=== PATIENT | female | born 1955 | race Caucasian/White ===

== ENCOUNTER 2020-06-13 12:11 | Emergency (ER) | payer OTHER, MEDICAID ==
[~2020-06-13] VITALS: Ht 154.9 cm; Wt 35.4 kg
[~2020-06-13 12:11] MED LIST: BENADRYL ALLERG25 M1 PO; MEDROL DOSEPAK4 MG PO; PEPCID AC20 M2 PO
[2020-06-13 12:23] VITALS: BP 93/55; Ht 154.9 cm; Wt 35.4 kg
== END 2020-06-13 14:25 | disposition home or self-care (01) ==
LOC: ED 12:11
DX: B02.9 Zoster without complications (principal); Z91.013 Allergy to seafood